=== PATIENT | male | born 1945 | race Caucasian/White ===

== ENCOUNTER 2021-02-02 18:19 | Emergency (ER) | payer OTHER ==
[2021-02-02 20:46] LABS: Absolute Lymphocytes (CBC) 0.9 K/uL (0.7-4.9); Basophils % 0.5 % (0-1.3); Hematocrit 42.2 % (39.6-49.0); RBC Red Blood Cell Count 4.74 M/uL (4.33-5.43)
[2021-02-02 20:58] LABS: Protime INR 1.06
--- NOTE | 2021-02-02 21:04 | RAD REPORT ---
EXAM DESCRIPTION: RAD - Chest Single View - 02/02/2021 8:04 pm CLINICAL HISTORY: weakness COMPARISON: None TECHNIQUE: AP portable chest image was obtained 02/02/2021 8:04 pm . FINDINGS: No focal mass or consolidation. Interstitial opacification is present favored to be chroni c interstitial disease. Edema or infiltrate can be masked. Sternotomy wires are in place. Left subcla vian pacemaker in place. Heart and vasculature are normal. No measurable pleural effusion and no pneu mothorax. No acute bony abnormality seen. No acute aortic findings suspected. IMPRESSION: No focal mass or consolidation. Prominent interstitial pattern is present without baseline comparison. 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 Superimposed mild interstitial edema or infiltrate cannot be excluded.
[2021-02-02 21:12] LABS: ALT/SGPT 20 U/L (12-78); AST/SGOT 15 U/L (15-37); Albumin 3.7 g/dL (3.4-5.0); Alkaline Phosphatase 57 U/L (45-117); BUN Blood Urea Nitrogen 22 mg/dL (7-18); Bicarbonate 29 mmol/L (21-32); Bilirubin Direct 0.2 mg/dL (0-0.2); Bilirubin Total 0.8 mg/dL (0.2-1.0); Glucose Level 87 mg/dL (74-106); Magnesium 2.3 mg/dL (1.8-2.4); NT PRO-BNP 374 pg/mL (<125); Potassium 4.4 mmol/L (3.5-5.1); Protein, Total 7.5 g/dL (6.4-8.2); Sodium Level 141 mmol/L (136-145); Troponin (Emerg Dept Use Only) < 0.02 ng/mL (0.0-0.045)
[2021-02-02] MEDS ORDERED: NA CHLORIDE 0.9% 1,000 ML ONE (21:48)
--- NOTE | 2021-02-02 22:27 | EDPHYS ---
Physician Documentation [facility] Name: Brad Sexton Age: 75 yrs Sex: Male : 1945 Arrival Date: 02/02/2021 Time: 18:25 Bed 7 Private MD: Andrey [facility] ED Physician Bassem Basurto HPI: 02/03 07:06 This 75 yrs old Male presents to ER via Ambulatory with complaints of tw4 Dizziness, Low BP. 07:06 The patient presents with dizziness, feeling faint. Onset: The symptoms/episode tw4 began/occurred today. Context: occurred at home. Modifying factors: The symptoms are alleviated by nothing, the symptoms are aggravated by nothing. Associated signs and symptoms: The patient has no apparent associated signs or symptoms. Severity of symptoms: At their worst the symptoms were moderate in the emergency department the symptoms are unchanged. Patient's baseline: Neuro: alert and fully oriented, Motor: no deficits, Ambulation: walks without assistance. The patient has not experienced similar symptoms in the past. Historical: - Allergies: 02/02 18:54 No Known Allergies; ss - Home Meds: 18:54 aspirin 325 mg Oral TbEC 1 tab once daily [Active]; omeprazole 40 mg Oral cpDR 1 cap ss once daily [Active]; levothyroxine 50 mcg tab 1 tab once daily [Active]; simvastatin 40 mg Oral tab 1 tab once daily [Active]; - PMHx: 18:54 Hypothyroidism; Enlarged prostate; High Cholesterol; GERD; ss - Immunization history:: Adult Immunizations up to date. - Social history:: Smoking status: Patient denies any tobacco usage or history of. ROS: 02/03 07:06 Constitutional: Negative for fever, chills, and weight loss, Eyes: Negative for injury, tw4 pain, redness, and discharge, Cardiovascular: Negative for chest pain, palpitations, and edema, Respiratory: Negative for shortness of breath, cough, wheezing, and pleuritic chest pain, Abdomen/GI: Negative for abdominal pain, nausea, vomiting, diarrhea, and constipation, Back: Negative for injury and pain, MS/Extremity: Negative for injury and deformity, Skin: Negative for injury, rash, and discoloration. Neuro: Positive for dizziness, weakness, Negative for altered mental status, gait disturbance, headache, loss of consciousness, numbness, seizure activity. Exam: 07:06 Constitutional: This is a well developed, well nourished patient who is awake, alert, tw4 and in no acute distress. Head/Face: Normocephalic, atraumatic. Chest/axilla: Normal chest wall appearance and motion. Nontender with no deformity. No lesions are appreciated. Cardiovascular: Regular rate and rhythm with a normal S1 and S2. No gallops, murmurs, or rubs. Normal PMI, no JVD. No pulse deficits. Respiratory: Lungs have equal breath sounds bilaterally, clear to auscultation and percussion. No rales, rhonchi or wheezes noted. No increased work of breathing, no retractions or nasal flaring. Abdomen/GI: Soft, non-tender, with normal bowel sounds. No distension or tympany. No guarding or rebound. No evidence of tenderness throughout. Back: No spinal tenderness. No costovertebral tenderness. Full range of motion. Skin: Warm, dry with normal turgor. Normal color with no rashes, no lesions, and no evidence of cellulitis. MS/ Extremity: Pulses equal, no cyanosis. Neurovascular intact. Full, normal range of motion. Neuro: Awake and alert, GCS 15, oriented to person, place, time, and situation. Cranial nerves II-XII grossly intact. Motor strength 5/5 in all extremities. Sensory grossly intact. Cerebellar exam normal. Normal gait. Vital Signs: 02/02 18:51 BP 104 / 85; Pulse 82; Resp 16; Temp 98.2(TE); Pulse Ox 98% on R/A; Weight 78.93 kg; ss Height 6 ft. 2 in. (187.96 cm); Pain 0/10; 22:42 BP 140 / 83; Pulse 62; Resp 16; Pulse Ox 100% on R/A; jm8 18:51 Body Mass Index 22.34 (78.93 kg, 187.96 cm) ss MDM: 19:43 Patient medically screened. tw4 02/03 07:08 Differential diagnosis: cardiac arrhythmia, generalized weakness. Data reviewed: vital tw4 signs, nurses notes. Data interpreted: hospice educator: Pulse oximetry:. Counseling: I had a detailed discussion with the patient and/or guardian regarding: the historical points, exam findings, and any diagnostic results supporting the discharge/admit diagnosis. Special discussion: I discussed with the patient/guardian in detail that at this point there is no indication for admission to the hospital. It is understood, however, that if the symptoms persist or worsen the patient needs to return immediately for re-evaluation. 07:08 Data reviewed: lab test result(s), cardiac enzymes, CBC, electrolytes, EKG. Test tw4 interpretation: by ED physician or midlevel provider: ECG, plain radiologic studies. 02/02 19:47 Order name: Basic Metabolic Panel tw4 02/02 19:47 Order name: CBC with Diff; Complete Time: 21:45 tw4 02/02 19:47 Order name: LFT's; Complete Time: 21:45 tw4 02/02 19:47 Order name: Magnesium; Complete Time: 21:45 tw4 02/02 19:47 Order name: NT PRO-BNP; Complete Time: 21:45 tw4 02/02 19:47 Order name: PT-INR; Complete Time: 21:45 tw4 02/02 19:47 Order name: Troponin (emerg Dept Use Only); Complete Time: 21:45 tw4 02/02 19:47 Order name: XRAY Chest (1 view); Complete Time: 21:45 tw4 02/02 19:47 Order name: EKG; Complete Time: 19:48 tw4 02/02 19:47 Order name: Cardiac monitoring; Complete Time: 20:49 tw4 02/02 19:47 Order name: EKG - Nurse/Tech; Complete Time: 20:49 tw4 02/02 19:47 Order name: IV Saline Lock; Complete Time: 20:49 tw4 02/02 19:48 Order name: Basic Metabolic Panel; Complete Time: 21:45 EDMS 02/02 19:47 Order name: Labs collected and sent; Complete Time: 20:50 tw4 02/02 19:47 Order name: O2 Per Protocol; Complete Time: 20:43 tw4 02/02 19:47 Order name: O2 Sat Monitoring; Complete Time: 20:43 tw4 EC:06 Rate is 62 beats/min. Rhythm is regular. QRS [place] is Normal. [place] interval is normal. QRS tw4 interval is normal. QT interval is normal. No Q waves. T waves are Normal. No ST changes noted. Clinical impression: Normal ECG. Interpreted by me. Reviewed by me. Administered Medications: 02/02 21:34 Drug: NS 0.9% 1000 ml Route: IV; Rate: 1 bolus; Site: right antecubital; jm8 22:43 Follow up: IV Status: Completed infusion jm8 Disposition: 02/02/21 22:26 Discharged to Home. Impression: Weakness. - Condition is Stable. - Discharge Instructions: Weakness, Fatigue. - Medication Reconciliation Form, Thank You Letter, Antibiotic Education, Prescription Opioid Use form. - Follow up: Ricco Balderas DO; When: Upon discharge from the Emergency Department; Reason: Recheck today's complaints, Continuance of care, Re-evaluation by your physician. - Problem is new. - Symptoms have improved. Signatures: Dispatcher [employer] EDKate Sanchez RN RN Bassem Lucas MD MD tw4 Taran Michaud RN RN jm8 Corrections: (The following items were deleted from the chart) 22:44 22:26 02/02/2021 22:26 Discharged to Home. Impression: Weakness. Condition is Stable. jm8 Forms are Medication Reconciliation Form, Thank You Letter, Antibiotic Education, Prescription Opioid Use. Follow up: Ricco Balderas; When: Upon discharge from the Emergency Department; Reason: Recheck today's complaints, Continuance of care, Re-evaluation by your physician. Problem is new. Symptoms have improved. tw4
--- NOTE | 2021-02-02 22:27 | ER ---
Nurse's Notes [facility] Name: Brad Sexton Age: 75 yrs Sex: Male : 1945 Arrival Date: 02/02/2021 Time: 18:25 Bed 7 Private MD: Ricco Balderas Diagnosis: Weakness Presentation: 02/02 18:51 Chief complaint: Patient states: Dizzy, lightheaded and feeling foggy that began this ss morning. Denies pain. Coronavirus screen: Client denies travel out of the [place] in the last 14 days. Ebola Screen: Patient denies exposure to infectious person. Patient denies travel to an Ebola-affected area in the 21 days before illness onset. Initial Sepsis Screen: Does the patient meet any 2 criteria? No. Patient's initial sepsis screen is negative. Does the patient have a suspected source of infection? No. Patient's initial sepsis screen is negative. Risk Assessment: Do you want to hurt yourself or someone else? Patient reports no desire to harm self or others. Onset of symptoms was February 02, 2021. 18:51 Method Of Arrival: Ambulatory ss 18:51 Acuity: JENNI 3 ss Historical: - Allergies: 18:54 No Known Allergies; ss - Home Meds: 18:54 aspirin 325 mg Oral TbEC 1 tab once daily [Active]; omeprazole 40 mg Oral cpDR 1 cap ss once daily [Active]; levothyroxine 50 mcg tab 1 tab once daily [Active]; simvastatin 40 mg Oral tab 1 tab once daily [Active]; - PMHx: 18:54 Hypothyroidism; Enlarged prostate; High Cholesterol; GERD; ss - Immunization history:: Adult Immunizations up to date. - Social history:: Smoking status: Patient denies any tobacco usage or history of. Screenin:33 Abuse screen: Denies threats or abuse. Denies injuries from another. Nutritional jm8 screening: No deficits noted. Tuberculosis screening: No symptoms or risk factors identified. Fall Risk IV access (20 points). Assessment: 21:31 General: Appears in no apparent distress. comfortable, Behavior is calm, cooperative, jm8 appropriate for age. Pain: Denies pain. Neuro: Level of Consciousness is awake, alert, obeys commands, Oriented to person, place, time, Reports dizziness, weakness light-headedness. Cardiovascular: No deficits noted. Cardiovascular: No deficits noted. Reports lightheadedness. Respiratory: No deficits noted. Airway is patent Trachea midline Respiratory effort is even, unlabored, Respiratory pattern is regular, symmetrical. GI: No deficits noted. No signs and/or symptoms were reported involving the gastrointestinal system. : No deficits noted. No signs and/or symptoms were reported regarding the genitourinary system. EENT: No deficits noted. No signs and/or symptoms were reported regarding the EENT system. Derm: No deficits noted. No signs and/or symptoms reported regarding the dermatologic system. Musculoskeletal: No deficits noted. No signs and/or symptoms reported regarding the musculoskeletal system. Vital Signs: 18:51 BP 104 / 85; Pulse 82; Resp 16; Temp 98.2(TE); Pulse Ox 98% on R/A; Weight 78.93 kg; ss Height 6 ft. 2 in. (187.96 cm); Pain 0/10; 22:42 BP 140 / 83; Pulse 62; Resp 16; Pulse Ox 100% on R/A; jm8 18:51 Body Mass Index 22.34 (78.93 kg, 187.96 cm) ED Course: 18:25 Patient arrived in ED. mr 18:25 Ricco Balderas DO is Private Physician. mr 18:52 Triage completed. ss 18:54 Arm band placed on right wrist. ss 19:43 Bassem Basurto MD is Attending Physician. tw4 20:02 XRAY Chest (1 view) In Process Unspecified. EDMS 20:09 Pepe Cisneros, RN is Primary Nurse. jb4 20:49 Inserted saline lock: 20 gauge in right forearm, using aseptic technique. Blood oe collected. 21:34 Patient has correct armband on for positive identification. Bed in low position. Call jm8 light in reach. Side rails up X2. 22:25 Ricco Balderas DO is Referral Physician. tw4 22:43 No provider procedures requiring assistance completed. IV discontinued, intact. jm8 Administered Medications: 21:34 Drug: NS 0.9% 1000 ml Route: IV; Rate: 1 bolus; Site: right antecubital; jm8 22:43 Follow up: IV Status: Completed infusion [facility] Outcome: 22:26 Discharge ordered by . tw4 22:44 Discharged to home ambulatory. jm8 22:44 Condition: good 22:44 Discharge instructions given to patient, Instructed on discharge instructions, follow up and referral plans. medication usage, Demonstrated understanding of instructions, follow-up care, medications. 22:44 Patient left the ED. jm8 Signatures: Dispatcher [employer] EDTN Miley Riggs PatriciaKate stone, RN RN Pepe Mcgarry RN RN jb4 Jorge L Unger Terrence, MD MD tw4 Taran Michaud RN RN jm8
[2021-02-02 22:49] VITALS: TEMP 98.2
[2021-02-02 23:00] VITALS: BP 120/68; O2SAT 98
--- NOTE | 2021-02-03 10:27 | EKG ---
Test Date: 2021-02-02 Test Time: 20:22:01 Skiing Instructor: CRISTINA MEASUREMENT RESULTS: Intervals: Rate: 62 MD: 152 QRSD: 98 QT: 420 QTc: 426 [place]: P: 63 MD: 152 QRS: 50 T: 50 INTERPRETIVE STATEMENTS: Normal sinus rhythm Normal ECG Compared to ECG 02/11/2005 13:17:00 T-wave abnormality no longer present Electronically Signed On 02-03-21 10:25:39 CDT by Garfield Hernandez
== END 2021-02-02 22:44 | disposition home or self-care (01) ==
LOC: ER 18:19
DX: R53.1 Weakness (principal); E03.9 Hypothyroidism, unspecified; E78.00 Pure hypercholesterolemia, unspecified; Z79.82 Long term (current) use of aspirin
CPT/HCPCS: 93005; 85025; 80048; 36415; 83735; 85610; 80076; 84484; 83880; 71045; J7030; 96360; 99284

== ENCOUNTER 2021-02-12 07:28 | Day surgery (SDC) | payer OTHER ==
[2021-02-12 07:49] LABS: Absolute Lymphocytes (CBC) 0.8 K/uL (0.7-4.9); Basophils % 0.5 % (0-1.3); Hematocrit 41.3 % (39.6-49.0); Lymphocytes % 12.3 % (15.3-44.8); MPV 8.8 fL (7.6-11.3); RBC Red Blood Cell Count 4.66 M/uL (4.33-5.43)
[2021-02-12] MEDS ORDERED: Ringers Lactate 1,000 ML IV ONE (08:22)
[2021-02-12] MEDS ORDERED: CEFAZOLIN/SWI 1gm 1 GM/10 ML SYR ONE (08:22)
--- NOTE | 2021-02-12 10:31 | EKG ---
Test Date: 2021-02-12 Test Time: 06:47:44 Train Braker: TG MEASUREMENT RESULTS: Intervals: Rate: 79 MA: 148 QRSD: 82 QT: 372 QTc: 426 [place]: P: 58 MA: 148 QRS: 26 T: -36 INTERPRETIVE STATEMENTS: Normal sinus rhythm Septal infarct, age undetermined T wave abnormality, consider inferior ischemia Abnormal ECG Compared to ECG 02/02/2021 20:22:01 Myocardial infarct finding now present T-wave abnormality now present Possible ischemia now present Electronically Signed On 02-12-21 10:31:24 CDT by Garfield Hernandez
[2021-02-12] MEDS ORDERED: propofoL 200 MG/20 ML VIAL IV ONE (10:43)
[2021-02-12] MEDS ORDERED: LIDOCAINE 2% MPF 5 ML VIAL ONE (10:43)
[2021-02-12] MEDS ORDERED: FENTANYL CITR 100 MCG/2 ML ONE (10:44)
[2021-02-12] MEDS ORDERED: ONDANSETRON 4 MG/2 ML VIAL ONE (10:44)
[2021-02-12] MEDS: HYDROMORPHONE HCL 1 MG/ML INJ ONE ×2 (11:32→11:37)
[2021-02-12 12:56] VITALS: TEMP 97.8; O2SAT 99
[2021-02-12 12:58] VITALS: BP 128/77
--- NOTE | 2021-02-12 16:03 | OP ---
Date of Procedure: 02/12/2021 Surgeon: José Luis Galvna MD Sustainability Project Manager: None. Preoperative Diagnosis: Inflamed sebaceous cyst, left axilla. Postoperative Diagnosis: Inflamed sebaceous cyst, left axilla. Procedure: Wide excision of inflamed left axillary mass 6 x 4 cm with layered closure. Estimated Blood Loss: Minimal. Specimen: Pus for culture and sensitivity and cyst contents. Findings: As above. Anesthesia: General. Complications: None. Drains: A quarter-inch Cullen drain. Disposition: The patient tolerated the procedure in stable condition and taken to Recovery in good g eneral condition. Procedure In Detail: The patient was brought to the OR and placed in supine position. General anest hesia begun. The patient was prepped and draped in usual sterile fashion. Marcaine 0.5% was infiltr ated locally. A 15 blade was used to make a 6 x 4 cm incision to excise the entire cyst in [address] down to the deep subcutaneous tissue and send to Pathology as specimen. The cyst was open ed on the back table and pus was cultured as well. Wound irrigated. Bleeding controlled with cauter y. Flaps created and then a Cynthia drain quarter-inch placed and secured with 3-0 nylon and then a 2-0 chromic used to reapproximate the deep subcutaneous tissue and 3-0 nylon used to close the skin. Sterile dressing applied. The patient was awakened and taken to Recovery in good general condition. Discharge Note: The patient will go to Day Surgery and home when stable. Disposition: Home. Condition: Stable. Discharge Instructions: Resume home medications and diet. Activity as tolerated. No heavy lifting. Remove outer dressing in the a.m. Shower. Keep wound clean and dry. Dry gauze to wound daily. T ylenol No.3 one tablet p.o. q.4 p.r.n. pain, Cipro 500 mg p.o. q.12. Follow up in my office in 1 myriam lee Call for appointment. /MODL Voice ID: [id number] Report ID: [id number]
== END 2021-02-12 12:53 | disposition home or self-care (01) ==
LOC: OR 07:28
PROVIDERS: ATTEND Surgery
PROC: 0JBF0ZZ Excision of Left Upper Arm Subcutaneous Tissue and Fascia, Open Approach (ICD-10-PCS; principal; 2021-02-12 08:45)
DX: L72.0 Epidermal cyst (principal)
CPT/HCPCS: 93005; 87070; 85025; 80048; 36415; 87205; 88305; 87075; 11406; J2704; J3010; J1170; J0690; J7120; J2405

== ENCOUNTER 2021-02-19 19:39 | Inpatient (IN) | payer OTHER ==
--- OUTSIDE RECORDS SUMMARY | 2021-02-19 19:46 | XMS REPORT | Continuity of Care Document ---
:1945 Author Organization [facility] t Address [address] [place] [address] Care Team Providers Name Role Phone OSVALDO Attending Clinician Unavailable BRIDGET Attending Clinician Unavailable Problems Condition Condition Condition Status Onset Resolution Last Treating Co mments Source Name Details Category Date Date Treatment Clinician Date History of History of Problem Resolve [facility] cardiac cardiac d ity of disorder disorder [place] [facility] History of History of Problem Resolve [facility] hypertensi hypertensi d it y of on on [place] [facility] Throat Throat Problem Active [facility] mass mass ity of [place] [facility] Oropharyng Oropharyng Problem Active U nivers eal eal ity of dysphagia dysph[place]ia [place] [facility] Odynophagi Odynophagi Problem Active U nivers a a ity of [place] [facility] 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 Family History Family Member Diagnosis Comments Start Date Stop Date Source Mother Family history of [facility] it[facility] of [place] malignant neoplasm Physic ians Mother Family history of [facility] [place] cardiac disorder Physicia ns Medications Ordered Filled Start Stop Current Ordering Indication Dosage Frequency Signature Comments Components Source Medication Medication Date Date Medication? Clinician (SIG) Name Name Simvastatin Simvastatin Yes U nivers 40 MG Oral 40 MG Oral ity of Tablet Tablet [place] [facility] Clopidogrel Clopidogrel Yes U nivers Bisulfate Bisulfate ity o f 75 MG Oral 75 MG Oral Héctor as Tablet Tablet Physici ans Carvedilol Carvedilol Yes Uni vers 12.5 MG 12.5 MG ity of Oral Tablet Oral Tablet [place] [facility] Aspirin 325 Aspirin 325 Yes U nivers MG Oral MG Oral ity of Tablet Tablet [place] [facility] Omeprazole Omeprazole Yes Uni vers 20 MG Oral 20 MG Oral ity of Tablet Tablet [place] Delayed Delayed Physici Release Release ans Tamsulosin Tamsulosin Yes Uni vers HCl CAPS HCl CAPS ity of [place] [facility] Vital Signs Vital Name Observation Time Observation Value Comments Source BP Systolic 2017-07-28 134 mm[Hg] Location: [facility]; [facility] 13:45:00 Position: [place] [facility] Sitting BP Diastolic 2017-07-28 92 mm[Hg] Location: [facility]; [facility] 13:45:00 Position: [place] [facility] Sitting Height 2017-07-28 74 [in_us] [facility] 13:45:00 [place] [facility] Weight 2017-07-28 195 [lb_av] [facility] 13:45:00 [place] [facility] Body Mass Index 2017-07-28 25.04 kg/m2 University o f Calculated 13:45:00 [place] [facility] Temperature 2017-07-28 98 [degF] [facility] 13:45:00 [place] [facility] Heart Rate 2017-07-28 91 /min [facility] 13:45:00 [place] [facility] BP Systolic 2017-07-07 153 mm[Hg] [facility] 14:25:[facility] Position: [place] [facility] Sitting BP Diastolic 2017-07-07 97 mm[Hg] [facility] 14:25:[facility] Position: [place] [facility] S[facility] Height 2017-07-07 74 [in_us] [facility] 14:25:00 [place] [facility] Weight 2017-07-07 195 [lb_av] [facility] 14:25:00 [place] [facility] Body Mass Index 2017-07-07 25.04 kg/m2 University o f Calculated 14:25:00 [place] [facility] Temperature 2017-07-07 97.9 [degF] Method: Oral [facility] of 14:25:00 [place] [facility] Heart Rate 2017-07-07 81 /min [facility] of 14:25:00 [place] [facility] BP Systolic 2017-07-04 157 mm[Hg] Location: [facility]; [facility] 11:33:00 Position: [place] Physician s Sitting BP Diastolic 2017-07-04 95 mm[Hg] [place] [facility]; [facility] :33:00 Position: [place] [facility] s Sitting Height 2017-07-04 74 [in_us] [facility] 11:33:00 [place] [facility] Weight 2017-07-04 197.5 [lb_av] [facility] 11:33:00 [place] [facility] Body Mass Index 2017-07-04 25.36 kg/m2 University o f Calculated 11:33:00 [place] [facility] Heart Rate 2017-07-04 86 /min [facility] 11:33:00 [place] [facility] Procedures Procedure Date / Time Performed Performing Clinician Sour e CT Chest w contrast 2017-07-04 00:00:00 [facility] [id number] Neck soft tissue w 2017-07-04 00:00:00 [facility] contrast [id number] Physicians History of heart [facility] surgery Physicians Encounters Start End Encounter Admission Attending Care Care Encounter Source Date/Time Date/Time Type Type Clinicians Facility Department ID 2021-02-16 2021-02-16 Outpatient [facility] [id number] [facility] 2021-02-16 2021-02-16 Outpatient [facility] [id number] [facility] 2021-01-05 2021-01-05 Outpatient [facility] [id number] [facility] 2020-12-16 2020-12-16 Outpatient [facility] [id number] [facility] 2017-10-13 2017-10-13 AppointSTERLING Luu UTP UTP [id number] [facility] 14:00:00 14:00:00 t; Leticia RILEY M.D. [place] [facility] 2017-07-28 2017-07-28 AppointSTERLING Luu UTP Otorhinolar [id number] Univers 13:30:00 13:30:00 t; Leticia RILEY yngology - i ty of Leticia KATZ [facility] ans 2017-07-28 2017-07-28 Appointmen [facility] Neu[facility] [id number] Univers 12:00:00 12:00:00 t; Deway[facility]. [facility] ans 2017-07-21 2017-07-21 Appointmen STERLING RILEY UTP [facility] [id number] Univers 14:00:00 14:00:00 t; Leticia RILEY M.D. [facility] 2017-07-07 2017-07-07 Appointmen STERLING RILEY UTP Otorhinolar [id number] Univers 14:15:00 14:15:00 t; Leticia RILEYngology - i ty of Leticia KATZ [facility] ans 2017-07-04 2017-07-04 Appointmen STERLING RILEY UTP Otorhinolar [id number] Univers 11:15:00 11:15:00 t; Leticia RILEY yngology - i ty aden KATZ M.D. [facility] ans Results This patient has no known results.
[2021-02-19 20:11] LABS: Basophils % 0.7 % (0-1.3); Hematocrit 40.9 % (39.6-49.0); Lymphocytes % 18.5 % (15.3-44.8); MPV 8.4 fL (7.6-11.3); RBC Red Blood Cell Count 4.64 M/uL (4.33-5.43)
[2021-02-19 20:12] LABS: Protime INR 1.05
[2021-02-19] MEDS ORDERED: ASPIRIN 81 MG CHEWABLE TABLET ONE (20:44)
[2021-02-19] MEDS ORDERED: NITROGLYCERIN 0.4 MG/TAB SL ONE (20:44)
[2021-02-19 20:47] LABS: Albumin 3.7 g/dL (3.4-5.0); Bilirubin Direct 0.1 mg/dL (0-0.2); Bilirubin Total 0.4 mg/dL (0.2-1.0); Potassium 3.7 mmol/L (3.5-5.1); Protein, Total 7.4 g/dL (6.4-8.2); Troponin (Emerg Dept Use Only) 1.4 ng/mL (0.0-0.045)
--- NOTE | 2021-02-19 21:00 | RAD REPORT ---
EXAM DESCRIPTION: RAD - Chest Single View - 02/19/2021 8:35 pm CLINICAL HISTORY: CHEST PAIN COMPARISON: Portable February 02 TECHNIQUE: AP portable chest image was obtained 02/19/2021 8:35 pm . FINDINGS: No dense mass or consolidation. Patient has a prominent baseline interstitial pattern. Valerie g markings are not clearly different from comparison. The baseline pattern could mask early edema or infiltrate. Heart and vasculature are normal. No measurable pleural effusion and no pneumothorax. No acute bony abnormality seen. No acute aortic findings suspected. IMPRESSION: No new mass or consolidation. Interstitial pattern is prominent but not clearly different. Baseline prominence could mask early juancarlos ma or infiltrate.
[2021-02-19] MEDS ORDERED: NA CHLORIDE 0.9% 1,000 ML ONE (21:03)
--- NOTE | 2021-02-19 21:06 | EDPHYS ---
Physician Documentation [facility] Name: Brad Sexton Age: 75 yrs Sex: Male : 1945 Arrival Date: 02/19/2021 Time: 19:40 Bed 23 Private MD: ED Physician Jose Dobbins HPI: 02/19 19:49 This 75 yrs old Male presents to ER via Unassigned with complaints of Chest rn Pain, Breathing Difficulty. 19:49 The patient or guardian reports chest pain that is located primarily in the substernal rn area. Onset: this morning. The pain radiates to the right scapula. Associated signs and symptoms: Pertinent positives: shortness of breath, Pertinent negatives: abdominal pain, cough, diaphoresis, lower extremity swelling, near syncope, palpitations. The chest pain is described as a heaviness, a pressure. Duration: The patient or guardian reports multiple episodes, that are intermittent. Modifying factors: The symptoms are alleviated by nothing. the symptoms are aggravated by nothing. Severity of pain: At its worst the pain was moderate in the emergency department the pain is unchanged. The patient has experienced similar episodes in the past. The patient has not recently seen a physician. Reports a couple of weeks of worsening chest pain, substernal/right side, radiates to right scapula, assoc with mild sob when laying flat, no fever or cough, similar to previous episodes in past, not able to get in with digital imager. Had CABG 2000, 5 stents, last one 2015, takes only aspirin. NO trauma. Doesn't feel well. . Historical: - Allergies: 20:35 No Known Allergies; bb - Home Meds: 20:35 aspirin 325 mg Oral TbEC 1 tab once daily [Active]; levothyroxine 50 mcg tab 1 tab once bb daily [Active]; omeprazole 40 mg Oral cpDR 1 cap once daily [Active]; simvastatin 40 mg Oral tab 1 tab once daily [Active]; - PMHx: 20:35 enlarged prostate; GERD; High Cholesterol; Hypothyroidism; CAD; bb - PSHx: 20:35 Coronary artery bypass graft; bb - Immunization history:: Adult Immunizations up to date, Client reports receiving the 2nd dose of the Covid vaccine. - Social history:: Smoking status: unknown. - Family history:: not pertinent. - Hospitalizations: : No recent hospitalization is reported. ROS: 19:49 Constitutional: Negative for fever, chills, and weight loss, Eyes: Negative for injury, rn pain, redness, and discharge, Neck: Negative for injury, pain, and swelling, Cardiovascular: Negative for palpitations, and edema, Respiratory: Negative for cough, wheezing, and pleuritic chest pain, Abdomen/GI: Negative for abdominal pain, nausea, vomiting, diarrhea, and constipation, Back: Negative for injury and pain, MS/Extremity: Negative for injury and deformity, Skin: Negative for injury, rash, and discoloration, Neuro: Negative for headache, weakness, numbness, tingling, and seizure. Exam: 19:49 Constitutional: This is a well developed, well nourished patient who is awake, alert, rn and in no acute distress. Head/Face: Normocephalic, atraumatic. Eyes: Periorbital areas with no swelling, redness, or edema. Cardiovascular: Regular rhythm, bradycardic. Respiratory: No increased work of breathing, no retractions or nasal flaring. NO wheezing. Abdomen/GI: soft, non-tender Skin: Warm, dry MS/ Extremity: Pulses equal, no cyanosis. Neurovascular intact. Full, normal range of motion. Equal circumference. Neuro: Awake and alert, GCS 15, oriented to person, place, time, and situation. Cranial nerves II-XII grossly intact. Motor strength 5/5 in all extremities. Sensory grossly intact. Cerebellar exam normal. Normal gait. 20:57 ECG was reviewed by the Attending Physician. rn Vital Signs: 19:45 BP 129 / 74; Pulse 57; Resp 16 S; Temp 98(O); Pulse Ox 100% on R/A; Weight 79.83 kg bb (R); Height 6 ft. 2 in. (187.96 cm) (R); Pain 7/10; 20:30 BP 60 / 47; Pulse 72; Resp 16; Pulse Ox 98% on R/A; ld1 20:39 BP 85 / 58; Pulse 59; Resp 16; Pulse Ox 98% ; ld1 20:45 BP 100 / 57; Pulse 56; Resp 15; Pulse Ox 97% on R/A; ld1 21:00 BP 111 / 76; Pulse 57; Resp 15; Pulse Ox 98% on R/A; ld1 21:15 BP 125 / 72; Pulse 58; Resp 19; Pulse Ox 100% ; ld1 22:34 BP 110 / 70; Pulse 60; Resp 17; Pulse Ox 98% on R/A; ld1 19:45 Body Mass Index 22.60 (79.83 kg, 187.96 cm) bb MDM: 19:42 Patient medically screened. rn 19:52 Differential diagnosis: abnormal EKG, acute myocardial infarction, acute pericarditis, rn anxiety, coronary artery disease chest wall pain, costochondritis, esophagitis, gastroesophageal reflux disease (GERD), peptic ulcer disease, pericarditis, pleurisy, pneumothorax, stable angina, unstable angina. 21:03 HEART Score: History: Highly Suspicious (2), ECG: Non specific repolarization rn disturbance / LBTB / PM (1), Age: > or = 65 years (2), Risk Factors: > or = 3 Risk factors for atherosclerotic disease (2), Troponin: > 1 and < 3 x normal limit (1). The patient was given aspirin in the Emergency Department. Data reviewed: vital signs, nurses notes, lab test result(s), EKG, radiologic studies, plain films, and as a result, I will admit patient. Counseling: I had a detailed discussion with the patient and/or guardian regarding: the historical points, exam findings, and any diagnostic results supporting the discharge/admit diagnosis, lab results, radiology results, the need for further work-up and treatment in the hospital. Response to treatment: the patient's symptoms have markedly improved after treatment, and as a result, I will admit patient. Admission orders: after a detailed discussion of the patient's condition and case, the admit orders are written by me. ED course: Pt's pain markedly improved after nitroglycerin, but also dropped his blood pressure, fluids ordered and placed supine with improvement, no syncope, and improvement of BP to 111/76. Will anticoagulate and admit for NSTEMI.. 02/19 19:48 Order name: Basic Metabolic Panel; Complete Time: 21:03 rn 02/19 19:48 Order name: CBC with Diff; Complete Time: 20:18 rn 02/19 19:48 Order name: LFT's; Complete Time: 21:03 rn 02/19 19:48 Order name: NT PRO-BNP; Complete Time: 21:03 rn 02/19 19:48 Order name: PT-INR; Complete Time: 20:18 rn 02/19 19:48 Order name: Troponin (emerg Dept Use Only); Complete Time: 21:03 rn 02/19 19:48 Order name: XRAY Chest (1 view); Complete Time: 21:02 rn 02/19 19:48 Order name: EKG; Complete Time: 19:49 rn 02/19 22:03 Order name: COVID-19 : Document "Date of Symptom Onset" if Symptomatic. 2 02/19 22:04 Order name: CORONAVIRUS EDND 02/19 19:48 Order name: Cardiac monitoring; Complete Time: 20:07 rn 02/19 19:48 Order name: EKG - Nurse/Tech; Complete Time: 20:07 rn 02/19 19:48 Order name: IV Saline Lock; Complete Time: 20:07 rn 02/19 19:48 Order name: Labs collected and sent; Complete Time: 20:07 rn 02/19 19:48 Order name: O2 Per Protocol; Complete Time: 20:07 rn 02/19 19:48 Order name: O2 Sat Monitoring; Complete Time: 20:07 rn 02/19 22:21 Order name: CONS Physician Consult [facility] EC:57 Rate is 57 beats/min. Rhythm is regular. QRS [place] is Normal. NE interval is normal. QRS rn interval is normal. QT interval is normal. No Q waves. T waves are Inverted in leads II, III, aVF. No ST changes noted. Clinical impression: Sinus bradycardia. Interpreted by me. Reviewed by me. Administered Medications: 20:25 Drug: Aspirin Chewable Tablet 324 mg Route: PO; ld1 22:36 Follow up: Response: No adverse reaction ld1 20:25 Drug: Nitroglycerin 0.4 mg Route: Sublingual; ld1 22:36 Follow up: Response: No adverse reaction ld1 20:45 Drug: NS 0.9% 1000 ml Route: IV; Rate: 1 bolus; Site: right antecubital; ld1 21:29 Drug: Lovenox (enoxaparin) 80 mg Route: Sub-Q; Site: right lower abdomen; ld1 Disposition Summary: 02/19/21 21:06 Hospitalization Ordered Hospitalization Status: Inpatient Admission rn Provider: Gokul Epps rn Location: Telemetry/MedSur (Inpatient) rn Condition: Stable rn Problem: new rn Symptoms: have improved rn Bed/Room Type: Standard rn Room Assignment: 403(02/19/21 22:28) mw Diagnosis - Subsequent non-ST elevation (NSTEMI) myocardial infarction rn Forms: - Medication Reconciliation Form rn - SBAR form rn Signatures: Dispatcher [employer] EDMS Maria C Ardon, RN Marsha Martinez, RN Jose Guevara MD MD rn Dibbern, Lauren, RN RN ld1 Corrections: (The following items were deleted from the chart) 19:51 19:49 Constitutional: Negative for fever, chills, and weight loss, Eyes: Negative for rn injury, pain, redness, and discharge, Neck: Negative for injury, pain, and swelling, Cardiovascular: Negative for palpitations, and edema, Respiratory: Negative for shortness of breath, cough, wheezing, and pleuritic chest pain, Abdomen/GI: Negative for abdominal pain, nausea, vomiting, diarrhea, and constipation, Back: Negative for injury and pain, MS/Extremity: Negative for injury and deformity, Skin: Negative for injury, rash, and discoloration, Neuro: Negative for headache, weakness, numbness, tingling, and seizure, rn 22:28 21:06 rn tristian
--- NOTE | 2021-02-19 21:06 | ER ---
Nurse's Notes [facility] Name: Brad Sexton Age: 75 yrs Sex: Male : 1945 Arrival Date: 02/19/2021 Time: 19:40 Bed 23 Private MD: Diagnosis: Subsequent non-ST elevation (NSTEMI) myocardial infarction Presentation: 02/19 19:45 Chief complaint: Patient states: he started having chest pain x 2 weeks which is bb getting worse. Coronavirus screen: At this time, the client does not indicate any symptoms associated with coronavirus-19. Ebola Screen: No symptoms or risks identified at this time. Initial Sepsis Screen: Does the patient meet any 2 criteria? No. Patient's initial sepsis screen is negative. Does the patient have a suspected source of infection? No. Patient's initial sepsis screen is negative. Risk Assessment: Do you want to hurt yourself or someone else? Patient reports no desire to harm self or others. Onset of symptoms was January 2021. 19:45 Method Of Arrival: Ambulatory bb 19:45 Acuity: JENNI 2 bb Historical: - Allergies: 20:35 No Known Allergies; bb - Home Meds: 20:35 aspirin 325 mg Oral TbEC 1 tab once daily [Active]; levothyroxine 50 mcg tab 1 tab once bb daily [Active]; omeprazole 40 mg Oral cpDR 1 cap once daily [Active]; simvastatin 40 mg Oral tab 1 tab once daily [Active]; - PMHx: 20:35 enlarged prostate; GERD; High Cholesterol; Hypothyroidism; CAD; bb - PSHx: 20:35 Coronary artery bypass graft; bb - Immunization history:: Adult Immunizations up to date, Client reports receiving the 2nd dose of the Covid vaccine. - Social history:: Smoking status: unknown. - Family history:: not pertinent. - Hospitalizations: : No recent hospitalization is reported. Screenin:15 Abuse screen: Denies threats or abuse. Denies injuries from another. Nutritional ld1 screening: No deficits noted. Tuberculosis screening: No symptoms or risk factors identified. Fall Risk None identified. Assessment: 21:00 General: Appears in no apparent distress. uncomfortable, Behavior is calm, cooperative, ld1 appropriate for age. Pain: Complains of pain in chest Pain does not radiate. Pain currently is 9 out of 10 on a pain scale. Quality of pain is described as heavy, throbbing, Pain began 2-3 days ago. Is continuous. Neuro: Level of Consciousness is awake, alert, obeys commands, Oriented to person, place, time, situation. Cardiovascular: Reports chest pain, diaphoresis, shortness of breath, Capillary refill < 3 seconds Patient's skin is warm and dry. Rhythm is sinus bradycardia. Respiratory: Airway is patent Respiratory effort is even, unlabored, Respiratory pattern is regular, symmetrical. GI: Abdomen is flat, non-distended. 21:00 : No signs and/or symptoms were reported regarding the genitourinary system. EENT: No ld1 signs and/or symptoms were reported regarding the EENT system. Derm: No signs and/or symptoms reported regarding the dermatologic system. Musculoskeletal: No signs and/or symptoms reported regarding the musculoskeletal system. 22:34 Reassessment: Patient appears in no apparent distress at this time. Patient is alert, ld1 oriented x 3, equal unlabored respirations, skin warm/dry/pink. Patient denies pain at this time. Vital Signs: 19:45 BP 129 / 74; Pulse 57; Resp 16 S; Temp 98(O); Pulse Ox 100% on R/A; Weight 79.83 kg bb (R); Height 6 ft. 2 in. (187.96 cm) (R); Pain 7/10; 20:30 BP 60 / 47; Pulse 72; Resp 16; Pulse Ox 98% on R/A; ld1 20:39 BP 85 / 58; Pulse 59; Resp 16; Pulse Ox 98% ; ld1 20:45 BP 100 / 57; Pulse 56; Resp 15; Pulse Ox 97% on R/A; ld1 21:00 BP 111 / 76; Pulse 57; Resp 15; Pulse Ox 98% on R/A; ld1 21:15 BP 125 / 72; Pulse 58; Resp 19; Pulse Ox 100% ; ld1 22:34 BP 110 / 70; Pulse 60; Resp 17; Pulse Ox 98% on R/A; ld1 19:45 Body Mass Index 22.60 (79.83 kg, 187.96 cm) ED Course: 19:40 Patient arrived in ED. bp1 19:42 Jose Dobbins MD is Attending Physician. rn 19:42 Arm band placed on Patient placed in an exam room, on a stretcher, on windmill mechanic, bb on pulse oximetry. Family accompanied patient. 19:45 Initial lab(s) drawn, by me, sent to lab. Inserted saline lock: 20 gauge in right bb antecubital area, using aseptic technique. Blood collected. 19:46 EKG completed in triage. Results shown to MD. bb 20:22 Radha Saucedo, RN is Primary Nurse. ld1 20:35 Triage completed. bb 20:35 XRAY Chest (1 view) In Process Unspecified. EDMS 20:42 EKG done, by ED staff, reviewed by Jose Dobbins MD. bb 20:50 Inserted saline lock: 18 gauge in left forearm, using aseptic technique. bb 21:05 Gokul Epps MD is Hospitalizing Provider. rn 21:15 Patient has correct armband on for positive identification. Bed in low position. Call ld1 light in reach. Side rails up X2. manpower development specialist manager on. Pulse ox on. NIBP on. Door closed. Noise minimized. Warm blanket given. 22:42 No provider procedures requiring assistance completed. Patient admitted, IV remains in ld1 place. Patient maintains SpO2 saturation greater than 95% on room air. Administered Medications: 20:25 Drug: Aspirin Chewable Tablet 324 mg Route: PO; ld1 22:36 Follow up: Response: No adverse reaction ld1 20:25 Drug: Nitroglycerin 0.4 mg Route: Sublingual; ld1 22:36 Follow up: Response: No adverse reaction ld1 20:45 Drug: NS 0.9% 1000 ml Route: IV; Rate: 1 bolus; Site: right antecubital; ld1 21:29 Drug: Lovenox (enoxaparin) 80 mg Route: Sub-Q; Site: right lower abdomen; ld1 Outcome: 21:06 Decision to Hospitalize by Provider. rn 22:43 Admitted to Med/surg accompanied by nurse, via wheelchair, room 403, with chart, Report ld1 called to HECTOR [place]. 22:43 Condition: stable 23:01 Patient left the ED. mw2 Signatures: Dispatcher [employer] EDMS Marsha Ingram RN RN bb Nieto, Roman, MD MD rn [place], MyKena mw2 Marli Rincon [facility] Radha Saucedo, RN RN ld1
[2021-02-19] MEDS ORDERED: ENOXAPARIN 80 MG/0.8 ML SQ ONE (21:47)
[2021-02-19] MEDS ORDERED: ONDANSETRON 4 MG/2 ML VIAL IV PRN (22:58)
[2021-02-19] MEDS ORDERED: ACETAMINOPHEN 500 MG TAB PO PRN (22:58)
--- NOTE | 2021-02-19 23:24 | P.HP ---
Certification for Inpatient Patient admitted to: Inpatient With expected LOS: <2 Midnights Patient will require the following post-hospital care: None Practitioner: I am a practitioner with admitting privileges, knowledge of patient current condition, hospital course, and medical plan of care. Services: Services provided to patient in accordance with Admission requirements found in Title 42 Section 412.3 of the Code of Federal Regulations <LeiFrancisco Eder - Last Filed: 02/19/21 23:19> Patient History Date of Service: 02/19/21 Reason for admission: NSTEMI History of Present Illness: Mr. Sexton is a 75 yo M with CAD (CABG, stents x5, pacemaker), HLD, hypothyroidism, BPH, and GERD here today for 10/10 sternal chest pain that is constant, onset at rest. Reports diaphoresis. Denies nausea, vomiting, lightheadedness, vision changes. Pain has been occurring for the past 2 weeks but tonight was the worst. He describes it as an 'elephant sitting on his chest'. Has not seen a paper cap machine operator for a few years. Troponin 1.4. BNP 936. Received full dose lovenox and ASA in the ED. EKG showed T wave inversions inferiorly. - Past Medical/Surgical History Diabetic: No -: CAD - CABG, stents x 5, pacemaker -: GERD -: HLD -: hypothyroidism -: BPH -: throat ca -: skin ca -: CABG stentx5 -: pacemaker Psychosocial/ Personal History: - Family History Mother -: Heart disease Father -: Heart disease - Social History Smoking Status: Never smoker Alcohol use: No CD- Drugs: No Caffeine use: Yes Place of Residence: Home <Francisco Odom - Last Filed: 02/19/21 23:19> Date of Service: 02/19/21 <Gokul Epps - Last Filed: 02/20/21 18:01> Allergies No Known Allergies Allergy (Verified 02/12/21 07:58) Home Medications: Aspirin [Aspirin EC 325 MG] 325 mg PO DAILY 02/12/21 Omeprazole 40 mg PO DAILY 02/12/21 Simvastatin 40 mg PO DAILY 02/12/21 Clopidogrel Bisulfate [Plavix] 75 mg PO DAILY #30 tablet 02/20/21 Levothyroxine [Synthroid*] 0.075 mg PO DAILY 02/20/21 Metoprolol Tartrate [Lopressor] 25 mg PO BID #60 tab 02/20/21 Nitroglycerin [Nitrostat] 0.4 mg SL DAILY PRN #100 btl 02/20/21 Review of Systems 10-point ROS is otherwise unremarkable Cardiovascular: Chest Pain <Francisco Odom - Last Filed: 02/19/21 23:19> Physical Examination - Vital Signs Temperature: 98 F Blood Pressure: 110/70 Pulse: 60 Respirations: 17 - Physical Exam General: Alert, In no apparent distress HEENT: Atraumatic, PERRLA, Mucous membr. moist/pink, EOMI, Sclerae nonicteric Neck: Supple, 2+ carotid pulse no bruit, No LAD, Without JVD or thyroid abnormality Respiratory: Clear to auscultation bilaterally, Normal air movement Cardiovascular: Regular rate/rhythm, Normal S1 S2 Gastrointestinal: Normal bowel sounds, No tenderness Musculoskeletal: No tenderness Integumentary: No rashes Neurological: Normal speech, Normal strength at 5/5 x4 extr, Normal tone, Normal affect Lymphatics: No axilla or inguinal lymphadenopathy - Studies Laboratory Data (last 24 hrs) 02/19/21 20:00: PT 12.1, INR 1.05 02/19/21 20:00: WBC 5.60 D, Hgb 13.7, Hct 40.9, Plt Count 183 02/19/21 20:00: Sodium 140, Potassium 3.7, BUN 21 H, Creatinine 0.93, Glucose 97, Total Bilirubin 0.4, AST 23, ALT 21, Alkaline Phosphatase 61 <Francisco Odom - Last Filed: 02/19/21 23:19> - Studies Laboratory Data (last 24 hrs) 02/19/21 20:00: PT 12.1, INR 1.05 02/19/21 20:00: WBC 5.60 D, Hgb 13.7, Hct 40.9, Plt Count 183 02/19/21 20:00: Sodium 140, Potassium 3.7, BUN 21 H, Creatinine 0.93, Glucose 97, Total Bilirubin 0.4, AST 23, ALT 21, Alkaline Phosphatase 61 <Gokul Epps - Last Filed: 02/20/21 18:01> Assessment and Plan - Problems (Diagnosis) (1) NSTEMI (non-ST elevated myocardial infarction) Current Visit: Yes Status: Acute (2) CAD (coronary artery disease) Current Visit: Yes Status: Chronic Qualifiers: Coronary Disease-Associated Artery/Lesion type: bypass graft [place] vs. transplanted heart: [place] heart Associated angina: with unstable angina Qualified Code(s): I25.700 - Atherosclerosis of coronary artery bypass graft(s), unspecified, with unstable angina pectoris (3) Hypothyroid Current Visit: Yes Status: Chronic Qualifiers: Hypothyroidism type: unspecified Qualified Code(s): E03.9 - Hypothyroidism, unspecified (4) HLD (hyperlipidemia) Current Visit: Yes Status: Chronic Qualifiers: Hyperlipidemia type: unspecified Qualified Code(s): E78.5 - Hyperlipidemia, unspecified (5) GERD (gastroesophageal reflux disease) Current Visit: Yes Status: Chronic Qualifiers: Esophagitis presence: esophagitis presence not specified Qualified Code(s): K21.9 - Gastro-esophageal reflux disease without esophagitis (6) BPH (benign prostatic hyperplasia) Current Visit: Yes Status: Chronic Qualifiers: Lower urinary tract symptom presence: unspecified whether lower urinary tract symptoms present Qualified Code(s): N40.0 - Benign prostatic hyperplasia without lower urinary tract symptoms - Plan cardiology consulted trend troponins and repeat EKG full dose lovenox q12 hours, daily ASA and statin no NTG given drop in pressure in ED O2 as needed lipid panel and thyroid panel pending dietitian consulted Discharge Plan: Home Plan to discharge in: 48 Hours - Advance Directives Does patient have a Living Will: No Does patient have a Durable POA for Healthcare: No - Code Status/Comfort Care Code Status Assessed: Yes (full code ) Critical Care: No Time Spent Managing Pts Care (In Minutes): 70 <Francisco Odom - Last Filed: 02/19/21 23:19> Date of Service: 02/19/21 Subjective: Agree with plan of care as mentioned below. Patient clinically is scheduled for cardiac catheterization today. Physical Examination Vitals: Afebrile vital signs are stable Physical exam Cardiovascular: Regular rate rhythm no murmur Lungs: Clear bilaterally Abdomen: Soft, nontender, nondistended, bowel sounds positive Neuro: No focal doses Extremities: No clubbing, no cyanosis, no edema Diagnostic data has been reviewed ASST: 1. Non STEMI Plan: 1. Serial troponins and EKG 2. Appreciate Cardiology consultation 3. Cardiac catheterization 4. Anti-platelet therapy, anti coagulation, beta-monica, statin, and O2 as needed 5. IV morphine for pain 6. Nitro p.r.n. <Gokul Epps - Last Filed: 02/20/21 18:01>
[2021-02-20 00:59] VITALS: BMI 22.6
[2021-02-20 04:24] LABS: Absolute Lymphocytes (CBC) 1.2 K/uL (0.7-4.9); Basophils % 0.4 % (0-1.3); Lymphocytes % 19.5 % (15.3-44.8); MPV 8.8 fL (7.6-11.3)
[2021-02-20 04:53] LABS: Albumin 3.2 g/dL (3.4-5.0); Bilirubin Total 0.4 mg/dL (0.2-1.0); Magnesium 1.9 mg/dL (1.8-2.4); Potassium 3.7 mmol/L (3.5-5.1); Protein, Total 6.6 g/dL (6.4-8.2); Thyroid Stimulating Hormone 1.66 uIU/mL (0.360-3.740)
--- NOTE | 2021-02-20 06:18 | EKG ---
Test Date: 2021-02-19 Test Time: 19:46:08 Endbander: CECI MEASUREMENT RESULTS: Intervals: Rate: 67 PA: 156 QRSD: 106 QT: 456 QTc: 481 [place]: P: 18 PA: 156 QRS: 19 T: -50 INTERPRETIVE STATEMENTS: Sinus rhythm with sinus arrhythmia with occasional premature ventricular complexes Incomplete left bundle branch block Voltage criteria for left ventricular hypertrophy Nonspecific T wave abnormality Prolonged QT Abnormal ECG Compared to ECG 02/19/2021 19:45:38 Ventricular premature complex(es) now present Left bundle-branch block now present T-wave abnormality now present Prolonged QT interval now present Sinus bradycardia no longer present Early repolarization no longer present Electronically Signed On 02-20-21 06:17:41 CDT by Garfield Hernandez
--- NOTE | 2021-02-20 06:18 | EKG ---
Test Date: 2021-02-19 Test Time: 19:45:38 [employer] Data Entry: CECI MEASUREMENT RESULTS: Intervals: Rate: 59 CA: 200 QRSD: 102 QT: 452 QTc: 447 [place]: P: 32 CA: 200 QRS: 20 T: 236 INTERPRETIVE STATEMENTS: Sinus bradycardia Left ventricular hypertrophy with repolarization abnormality Abnormal ECG Compared to ECG 02/12/2021 06:47:44 Left ventricular hypertrophy now present Early repolarization now present Sinus rhythm no longer present Myocardial infarct finding no longer present T-wave abnormality no longer present Possible ischemia no longer present Electronically Signed On 02-20-21 06:17:41 CDT by Garfield Hernandez
--- NOTE | 2021-02-20 08:11 | CON ---
Date of Consultation: 02/19/2021 Reason For Admission: Wog-PA-nicwefxjy myocardial infarction. History Of Present Illness: Mr. Sexton is a 75-year-old white male, who is a patient of Dr. Dae zarate. Last time he saw him was about 3 years ago. Apparently at that time, he had some st ents. He has had a history of CABG many years ago, but has really been lost to follow up and is not compliant with his medicine. He has a history of hypothyroidism, dyslipidemia, gastroesophageal refl ux disease. Came in with substernal right chest pain radiating to the scapula without any nausea, vo miting, diaphoresis, PND, orthopnea, pedal edema, palpitations, or syncope. His EKG showed nonspecif ic changes. His troponin was 2.36 with a BNP of 926. There is an echocardiogram pending. The patie nt remained with chest pain despite Lovenox. Past Medical History: As stated above. Allergies: NONE. Review of Systems: Negative. Social History: Positive for tobacco. Family History: Positive for heart disease. Medications: At home include aspirin, Lipitor, Synthroid, Prilosec. Physical Examination: Vital Signs: Stable. He was afebrile. He was in a sinus rhythm. HEENT: Negative. Neck: Supple without any bruit, lymphadenopathy, JVD, or thyromegaly. Chest: Clear to auscultation and percussion. Cardiac: Regular rhythm and rate without any murmurs, gallops, or rubs. Abdomen: Benign. Extremities: No clubbing, cyanosis, or edema. Pulses distally were faint. He had 1+ pulse on the r ight and the left femoral artery region. Skin: Dry and intact. Neurologic: Nonfocal. Impression: 1.Kjp-IT-vtdjvlnez myocardial infarction in a patient with history of coronary artery bypass graft a nd multiple stents in the past. 2.Dyslipidemia. 3.Hypothyroidism. 4.Gastroesophageal reflux disease. Plan: Mr. Sexton should be on beta blockers in addition to his regimen. His Lipitor needs to be maxe d out at 80 mg daily. We will hold his Lovenox and plan a heart catheterization on 02/20/2021 to def ine his coronary anatomy. The patient understands the risk and the benefits of the procedure and he agreed to proceed. NB/DIMITRIL Voice ID: [id number] Report ID: [id number]
[2021-02-20] MEDS ORDERED: ATORVASTATIN 20 MG TAB PO SCH (09:00)
[2021-02-20] MEDS ORDERED: PANTOPRAZOLE 40MG TABLET PO SCH (09:00)
[2021-02-20] MEDS: POTASSIUM CL SA 10 MEQ TAB PO ONE ×2 (09:00→16:14)
[2021-02-20] MEDS ORDERED: ASPIRIN EC 81 MG TAB PO SCH (09:00)
[2021-02-20] MEDS ORDERED: ENOXAPARIN 80 MG/0.8 ML SQ SCH (09:00)
[2021-02-20] MEDS ORDERED: ASPIRIN EC 325 MG TABLET PO SCH (09:00)
[2021-02-20] MEDS ORDERED: LEVOTHYROXINE SOD 0.075 MG TAB PO SCH (09:00)
[2021-02-20] MEDS ORDERED: MIDAZOLAM HCL 2 MG/2 ML INJ ONE (09:23)
[2021-02-20] MEDS ORDERED: FENTANYL CITR 100 MCG/2 ML ONE (09:23)
[2021-02-20] MEDS ORDERED: LIDOCAINE 1% 20 ML MDV ONE (09:24)
[2021-02-20] MEDS ORDERED: NA CHLORIDE 0.9% 50 ML ONE (09:24)
[2021-02-20] MEDS ORDERED: ATROPINE SULF 1 MG/10 ML SYR IV ONE (09:24)
[2021-02-20] MEDS ORDERED: HEPA 1000U/500MLS 1,000 UNIT/500 ML BAG IV ONE ×2 (09:24→09:40)
[2021-02-20] MEDS ORDERED: NA CHLORIDE 0.9% 500 ML ONE (09:57)
[2021-02-20] MEDS ORDERED: NITROGLYCERIN/D5W 25 MG/250 ML BTL IV ONE (10:35)
[2021-02-20] MEDS ORDERED: NITROGLYCERIN 100 MCG/ML SYR (for cath lab use only) IV ONE (10:35)
[2021-02-20] MEDS ORDERED: ASPIRIN 325 MG TAB ONE (10:51)
[2021-02-20] MEDS ORDERED: PRASUGREL (EFFIENT) 10 MG TAB ONE (10:52)
--- NOTE | 2021-02-20 12:26 | OP ---
Date of Procedure: 02/20/2021 Surgeon: Garfield Hernandez MD News Videotape Editor: Terri Myles Oconnell. Admitted on 02/19/[address] Epps's service with non-ST elevation myocardial infarction. The patien t was brought to the crime lab analyst today on 02/20/2021 for heart catheterization, selective coronary arter iogram and angioplasty of the RCA. Indication: Non-ST elevation myocardial infarction. Procedure In Detail: Mr. Setxon was brought to the crime lab analyst as an inpatient, prepped and draped in th e routine sterile fashion. Given Versed and fentanyl for sedation. A 6-Malagasy sheath introduced in the right common femoral artery successfully using the Seldinger technique and 10 cc of Xylocaine. A JL4 was used to cannulate the left main. There was total occlusion of the LAD. The circumflex was patent very distally. A small OM had 80% to 90% stenosis. These vessels were about 1 mm in size. Rachel scales JR4 catheter was then used to cannulate the RCA, which was stented from the proximal all the way t o the bifurcation of the posterolateral and PDA with multiple stenosis of 80%-90% throughout the vess el. The JR4 catheter was used to cannulate the RDZ. The RDZ was patent to the LAD with excellent flow distally. We decided to intervene. A JR4 guide with 6-Malagasy side hole was used to cannulate rachel scales RCA. We decided to do an angioplasty just secondary to the high burden of stents all the way from the proximal to the distal RCA. A 2.5 x 15 Emerge balloon compliant was used. We dilated from the distal RCA all the way to the proximal RCA with various pressures between an 11 atmosphere and 14 stan osphere. A Homer wire was used to cross the lesion. The stenosis improved dramatically from 80%-90 % throughout the vessel to less than 20% throughout the vessel. The patient tolerated the procedure well. There were no complications. Blood Loss: 5 cc. Final Diagnoses: Coronary artery disease, severe, status post patent RDZ to the LAD, diffuse diseas e in the distal circumflex OM that is too small to intervene with. Status post successful angioplast y of the RCA from the proximal all the way to the distal vessel. The patient received Angiomax during the procedure. I will also give him Effient and aspirin. He wi ll go home on aspirin, statin, beta blockers, either later on today or tomorrow. An Angio-Seal was u sed to close the case. Angiography in the right groin area was normal. He will be at bedrest for 2 hours. Total conscious sedation was 60 minutes. SHARI/BELTRAN Voice ID: [id number] Report ID: [id number]
[2021-02-20 16:44] VITALS: O2SAT 97
[2021-02-20 16:56] VITALS: BP 137/80; TEMP 97.3
--- NOTE | 2021-02-20 18:05 | P.DS ---
Discharge Date: 02/20/21 Disposition: ROUTINE DISCHARGE Discharge Condition: GOOD Reason for Admission: NSTEMI Consultations: Cardiology Brief History of Present Illness: Patient is a 75-year-old gentleman with a history of Coronary artery disease status post stent placement who came to the hospital with chest discomfort. Patient would was found have a non STEMI. Patient was admitted for further evaluation. Cardiology wanted to do a cardiac catheterization. Hospital Course: Patient had cardiac catheterization. Patient had stent partially occluded and patient had dilatation of right Coronary artery/angioplasty performed. Patient was treated very aggressively by Cardiology and patient's clinical symptoms are improving. Patient has improved quicker than expected with aggressive treatment. Cardiology has recommended that patient can go home today as long his cardiac status remained stable. Continue with dual anti-platelet therapy. Continue with statin therapy. Continue with nitro as needed. Plan to discharge home Vital Signs/Physical Exam: Temp Pulse Resp BP Pulse Ox 97.3 F 76 16 137/80 97 02/20/21 16:00 02/20/21 16:00 02/20/21 16:00 02/20/21 16:00 02/20/21 16:00 General: Alert, In no apparent distress, Oriented x3 Laboratory Data at Discharge: WBC 6.10 K/uL (4.3-10.9) 02/20/21 03:27 Hgb 12.9 g/dL (13.6-17.9) L 02/20/21 03:27 Hct 39.0 % (39.6-49.0) L 02/20/21 03:27 Plt Count 181 K/uL (152-406) 02/20/21 03:27 PT 12.1 SECONDS (9.5-12.5) 02/19/21 20:00 INR 1.05 02/19/21 20:00 Sodium 142 mmol/L (136-145) 02/20/21 03:27 Potassium 3.7 mmol/L (3.5-5.1) 02/20/21 03:27 BUN 21 mg/dL (7-18) H 02/20/21 03:27 Creatinine 0.84 mg/dL (0.55-1.3) 02/20/21 03:27 Glucose 100 mg/dL (74-106) 02/20/21 03:27 Phosphorus 3.0 mg/dL (2.5-4.9) 02/20/21 03:27 Magnesium 1.9 mg/dL (1.8-2.4) 02/20/21 03:27 Total Bilirubin 0.4 mg/dL (0.2-1.0) 02/20/21 03:27 AST 30 U/L (15-37) 02/20/21 03:27 ALT 20 U/L (12-78) 02/20/21 03:27 Alkaline Phosphatase 56 U/L (45-117) 02/20/21 03:27 Troponin I 4.40 ng/mL (0.0-0.045) H* 02/20/21 12:09 Triglycerides 101 mg/dL (<150) 02/20/21 03:27 Cholesterol 134 mg/dL (<200) 02/20/21 03:27 HDL Cholesterol 35 mg/dL (40-60) L 02/20/21 03:27 Cholesterol/HDL Ratio 3.83 02/20/21 03:27 Home Medications: Aspirin [Aspirin EC 325 MG] 325 mg PO DAILY 02/12/21 Omeprazole 40 mg PO DAILY 02/12/21 Simvastatin 40 mg PO DAILY 02/12/21 Clopidogrel Bisulfate [Plavix] 75 mg PO DAILY #30 tablet 02/20/21 Levothyroxine [Synthroid*] 0.075 mg PO DAILY 02/20/21 Metoprolol Tartrate [Lopressor] 25 mg PO BID #60 tab 02/20/21 Nitroglycerin [Nitrostat] 0.4 mg SL DAILY PRN #100 btl 02/20/21 New Medications: Metoprolol Tartrate [Lopressor] 25 mg PO BID #60 tab Nitroglycerin [Nitrostat] 0.4 mg SL DAILY PRN #100 btl PRN Reason: chets pain/angina Clopidogrel Bisulfate [Plavix] 75 mg PO DAILY #30 tablet Physician Discharge Instructions: OK TO DC IV AND DC HOME FOLLOW-UP WITH PRIMARY CARE PROVIDER IN 1-2 WEEKS FOLLOW-UP WITH CARDIOLOGY IN 1-2 WEEKS RETURN TO THE ER IF symptoms worsens CALL or TEXT DR. ACHARYA AT [phone] IF ANY QUESTIONS REGARDING HOSPITAL STAY. PLEASE CALL THE FLOOR AT [phone] IF ANY MEDICATION OR NURSING QUESTIONS. Diet: AHA Activity: Fall precautions Followup: Garfield Hernandez MD [ACTIVE - CAN ADMIT] - Ricco Balderas, [Primary Care Provider] - Time spent managing pt's care (in minutes): 35
[2021-02-20] MEDS ORDERED: ATORVASTATIN 40 MG TAB PO SCH (22:24)
[2021-02-21] MEDS ORDERED: ENSURE ENLIVE 237 ML CAN PO SCH ×2 (09:00)
--- NOTE | 2021-02-21 10:29 | EKG ---
Test Date: 2021-02-19 Test Time: 20:42:20 Buffing Wheel Presser: CECI MEASUREMENT RESULTS: Intervals: Rate: 57 ME: 166 QRSD: 88 QT: 472 QTc: 459 [place]: P: 34 ME: 166 QRS: 31 T: -33 INTERPRETIVE STATEMENTS: Sinus bradycardia with sinus arrhythmia Moderate voltage criteria for LVH, may be normal variant T wave abnormality, consider inferior ischemia Abnormal ECG Compared to ECG 02/19/2021 19:46:08 Possible ischemia now present Sinus rhythm no longer present Ventricular premature complex(es) no longer present Left bundle-branch block no longer present Prolonged QT interval no longer present T-wave abnormality still present Electronically Signed On 02-21-21 10:25:53 CDT by Garfield Hernandez
--- NOTE | 2021-02-24 08:52 | ECHO ---
HEIGHT: 6 ft 2 in WEIGHT: 176 lb 0 oz DATE OF STUDY: 02/20/[address]: Gokul Epps MD 2-DIMENSIONAL: YES M.MODE: YES DOPPLER: YES COLOR FLOW: YES TDS: NO PORTABLE: NO DEFINITY: NO BUBBLE STUDY: NO DIAGNOSIS: MYOCARDIAL INFARCTION CARDIAC HISTORY: CATHERIZATION: SURGERY: PROSTHETIC VALVE: PACEMAKER: MEASUREMENTS (cm) DIASTOLIC (NORMALS) SYSTOLIC (NORMALS) IVSd 1.1 (0.6-1.2) LA Diam 4.0 (1.9-4.0) LVEF 45% LVIDd 5.4 (3.5-5.7) LVIDs 4.2 (2.0-3.5) %FS 22% LVPWd 1.2 (0.6-1.2) Ao Diam 3.1 (2.0-3.7) 2 DIMENSIONAL ASSESSMENT: RIGHT ATRIUM: NORMAL LEFT ATRIUM: NORMAL RIGHT VENTRICLE: NORMAL LEFT VENTRICLE: NORMAL SIZE TRICUSPID VALVE: NORMAL MITRAL VALVE: NORMAL PULMONIC VALVE: NORMAL AORTIC VALVE: NORMAL PERICARDIAL EFFUSION: NONE AORTIC ROOT: NORMAL LEFT VENTRICULAR WALL MOTION: MILD GLOBAL HYPOKINESIS. DOPPLER/COLOR FLOW: MILD TRICUSPID REGURGITATION. NORMAL RIGHT VENTRICULAR SYSTOLIC PRESSURE. COMMENTS: MILD TRICUSPID REGURGITATION. MILD GLOBAL HYPOKINESIS. LEFT VENTRICULAR EJECTION FRACTION 45%. TECHNOLOGIST: Mayo HENRY
== END 2021-02-20 18:02 | disposition home or self-care (01) | DRG 251 ==
LOC: ER 19:39 → ERHOLD 22:28 → 4TH 22:40
PROVIDERS: ADMIT Hospitalist; ATTEND Hospitalist
PROC: 02703ZZ Dilation of Coronary Artery, One Artery, Percutaneous Approach (ICD-10-PCS; principal; 2021-02-20)
PROC: B201YZZ Plain Radiography of Multiple Coronary Arteries using Other Contrast (ICD-10-PCS; 2021-02-20)
PROC: B202YZZ Plain Radiography of Single Coronary Artery Bypass Graft using Other Contrast (ICD-10-PCS; 2021-02-20)
DX: I21.4 Non-ST elevation (NSTEMI) myocardial infarction (principal); E03.9 Hypothyroidism, unspecified; E78.5 Hyperlipidemia, unspecified; K21.9 Gastro-esophageal reflux disease without esophagitis; N40.0 Benign prostatic hyperplasia without lower urinary tract symptoms; Z95.1 Presence of aortocoronary bypass graft; Z95.5 Presence of coronary angioplasty implant and graft; Z95.0 Presence of cardiac pacemaker
CPT/HCPCS: 36415; 71045; 80048; 80053; 80061; 80076; 83735; 83880; 84100; 84439; 84443; 84484; 85025; 85347; 85610; 92920; 93005; 93306; 93455; 94760; 96372; 99285; C1725; C1760; C1893; J0583; J1644; J2250; J3010; J7030; J7040